=== PATIENT | male | born 1945 | race Caucasian/White ===

== ENCOUNTER → 2017-12-22 10:00 | Outpatient (CLI) | payer OTHER | END | disposition home or self-care (01) | LOC: LAB 10:00 → ADM 14:30 → AMB-ENDOS 12-29 14:30 → EDSTATUS 12-29 14:30 | DX: D12.2 Benign neoplasm of ascending colon (principal); D12.5 Benign neoplasm of sigmoid colon; D37.4 Neoplasm of uncertain behavior of colon ==

== ENCOUNTER 2018-03-16 12:24 | Day surgery (SDC) | payer OTHER | END 2018-03-16 17:05 | disposition home or self-care (01) | LOC: AMB-ENDOS 12:24 | DX: D12.3 Benign neoplasm of transverse colon (principal); D12.8 Benign neoplasm of rectum; K64.8 Other hemorrhoids ==